=== PATIENT | male | born 2000 | race Caucasian/White ===

== ENCOUNTER 2024-04-03 19:57 | Emergency (ER) | payer BC ==
[2024-04-03 21:14] LABS: CORONAVIRUS COVID-19 NAA NEGATIVE (NEGATIVE); INFLUENZA A NAA NEGATIVE (NEGATIVE); INFLUENZA B NAA NEGATIVE (NEGATIVE); RESPIRATORY SYNCYTIAL VIR NAA NEGATIVE (NEGATIVE)
== END 2024-04-03 20:39 | disposition home or self-care (01) ==
LOC: MW.ED 19:57
DX: J02.0 Streptococcal pharyngitis (principal); Z75.8 Other problems related to medical facilities and other health care; Z79.899 Other long term (current) drug therapy
CPT/HCPCS: 0241U; 87651; 99283

== ENCOUNTER 2025-05-03 08:45 | Emergency (ER) | payer BC | END 2025-05-03 09:34 | disposition home or self-care (01) | LOC: MW.ED 08:45 | DX: J02.0 Streptococcal pharyngitis (principal); R05.1 Acute cough; Z79.899 Other long term (current) drug therapy | CPT/HCPCS: 87651; 99283; J8540 ==